=== PATIENT | male | born 1945 | race Caucasian/White ===

== ENCOUNTER 2019-09-05 12:03 | Inpatient (IN) | payer MEDICARE ==
[~2019-09-05] VITALS: Ht 182.9 cm; Wt 91.2 kg
[2019-09-05 14:39] LABS: BASOPHILS % 0.2 % (0.0-1.0); HEMATOCRIT 41.1 % (38.2-49.6); HEMOGLOBIN 13.7 g/dL (14.0-18.0); LYMPHOCYTES # (AUTO) 0.7 (1.0-3.2); LYMPHOCYTES % 14.3 % (18.0-39.1); MEAN CORPUSCULAR HEMOGLOBIN 28.8 pg (28-32); MEAN CORPUSCULAR HGB CONC 33.3 g/dL (31-35); MEAN CORPUSCULAR VOLUME 86.3 fL (81-99); MONOCYTES # (AUTO) 0.6 (0.2-0.8); MONOCYTES % 12.4 % (4.4-11.3); NEUTROPHILS # (AUTO) 3.3 (2.1-6.9); NEUTROPHILS % 72.4 % (38.7-80.0); PLATELET COUNT 167 x10e3/uL (140-360); RED BLOOD COUNT 4.76 x10e6/uL (4.3-5.7); RED CELL DISTRIBUTION WIDTH 13.2 % (11.7-14.4)
[2019-09-05 14:43] LABS: BILIRUBIN,URINE NEGATIVE (NEGATIVE); CLARITY,URINE SL CLOUDY (CLEAR); COLOR,URINE YELLOW (YELLOW); URINE UROBILINOGEN 0.2 mg/dL (0.2 - 1)
[2019-09-05 14:44] LABS: KETONES,URINE NEGATIVE (NEGATIVE); LEUKOCYTE ESTERASE ,URINE NEGATIVE (NEGATIVE); NITRITE,URINE NEGATIVE (NEGATIVE); PROTEIN,URINE DIPSTICK 1+ (NEGATIVE)
[2019-09-05 14:55] LABS: WBC,URINE (MAN) 0-5 /HPF (0-5)
[2019-09-05] MEDS ORDERED: AZITHROMYCIN 500MG/NS 250 ML 250 ML IV STA (14:57)
[2019-09-05 14:59] LABS: ALANINE AMINOTRANSFERASE 23 IU/L (0-55); ALBUMIN 3.7 g/dL (3.5-5.0); ALBUMIN/GLOBULIN RATIO 1.1 (0.8-2.0); ALKALINE PHOSPHATASE 51 IU/L (40-150); ANION GAP 18.2 mmol/L (8-16); BLOOD UREA NITROGEN 27 mg/dL (7-26); BUN/CREATININE RATIO 25 (6-25); CALCIUM 9.4 mg/dL (8.4-10.2); CARBON DIOXIDE 22 mmol/L (22-29); CHLORIDE 99 mmol/L (98-107); EST GLOMERULAR FILTRATION RATE > 60 ML/MIN (60-); GLUCOSE 319 mg/dL (74-118); POTASSIUM 4.2 mmol/L (3.5-5.1); SODIUM 135 mmol/L (136-145)
[2019-09-05] MEDS: CEFTRIAXONE SOD 1 GM/NS 50 ML 50 ML IV SCH (15:44)
[2019-09-05] MEDS ORDERED: DEXTROSE 50% SYRINGE 50 ML IV PRN (16:30)
[2019-09-05] MEDS ORDERED: ONDANSETRON HCL INJ 2MG/ML 2ML 2 MG/ML VIAL IV PRN (16:30)
[2019-09-05] MEDS ORDERED: GLIPIZIDE-METF1 EAC1 PO (16:42)
[2019-09-05] MEDS ORDERED: FINASTERIDE5 MG PO (16:42)
[2019-09-05] MEDS ORDERED: ALTACE2.5 MG PO (16:42)
[2019-09-05] MEDS ORDERED: HUMALOG MI100 UNIT/2 (16:42)
[2019-09-05] MEDS ORDERED: CLOPIDOGREL75 MG PO (16:42)
[2019-09-05] MEDS ORDERED: SIMVASTATIN20 MG PO (16:42)
[2019-09-05] MEDS ORDERED: METOPROLOL SUCC25 MG PO (16:42)
[2019-09-05] MEDS ORDERED: TERAZOSIN HCL10 MG PO (16:42)
[2019-09-05] MEDS: INSULIN REGULAR, HUMAN 100 UNIT/1 ML 3ML VIAL SQ SCH ×2 (16:48→22:28)
[2019-09-05] MEDS: ACETAMINOPHEN 325 MG TAB PO PRN (16:49)
[2019-09-05] MEDS: OSELTAMIVIR PHOSPHATE 75 MG CAP PO SCH (16:49)
--- NOTE | 2019-09-05 16:57 | Diagnostic Imaging Report ---
Chest, 1 view, 09/05/2019. History: Cough, pneumonia. Comparison: None available. Findings: The cardiomediastinal silhouette and pulmonary vasculature are within normal limits for a portable exam. There is ill-defined right perihilar opacity. Linear opacities are present at the lung bases. There are no acute osseous or soft tissue abnormalities. Impression: Ill-defined right perihilar opacity may represent pneumonia but neoplasm cannot be excluded. Recommend CT chest with contrast or follow-up two-view chest x-ray after treatment. Signed by: Álvaro Aguilera on 09/05/2019 4:55 PM
[2019-09-05] MEDS ORDERED: KETOROLAC TROMETHAMINE 30 MG/ML VIAL IV NR (21:00)
[2019-09-06] MEDS ORDERED: ALBUTEROL/IPRATROPIUM 3 ML NEB ONE (00:56)
[2019-09-06] MEDS: ACETAMINOPHEN 325 MG TAB PO PRN ×3 (00:58→21:13)
[2019-09-06 01:20] LABS: ABG HCO3 21 mmol/L (23-28); ABG PCO2 32 mmHg (41-51); ABG PH 7.43 (7.31-7.41); ABG PO2 77 mmHg (80-105)
--- NOTE | 2019-09-06 01:25 | Diagnostic Imaging Report ---
EXAMINATION: CHEST SINGLE (PORTABLE) INDICATION: Short of breath COMPARISON: Chest x-ray 09/05/2019 FINDINGS: TUBES and LINES: None. LUNGS: Normal lung volumes. Dense right hilar/lingular lung/central lung hazy opacity. Soft tissue fullness of the right hilum. Possible narrowing of right central airways. Mild left perihilar haziness. PLEURA: No pleural effusion or pneumothorax. HEART AND MEDIASTINUM: The cardiomediastinal silhouette is unremarkable. BONES AND SOFT TISSUES: No acute osseous lesion. Soft tissues are unremarkable. UPPER ABDOMEN: No free air under the diaphragm. IMPRESSION: Dense hazy right hilar/central lung opacity could be pneumonia or a hilar mass. Recommend chest CT with contrast for further evaluation. Signed by: Tom Segal DO on 09/06/2019 1:23 AM
[2019-09-06 01:34] LABS: ALANINE AMINOTRANSFERASE 21 IU/L (0-55); ALBUMIN 3.4 g/dL (3.5-5.0); ALKALINE PHOSPHATASE 48 IU/L (40-150); BLOOD UREA NITROGEN 22 mg/dL (7-26); BUN/CREATININE RATIO 21 (6-25); CALCIUM 8.9 mg/dL (8.4-10.2); CARBON DIOXIDE 21 mmol/L (22-29); CHLORIDE 102 mmol/L (98-107); CREATININE, SERUM 1.05 mg/dL (0.72-1.25); EST GLOMERULAR FILTRATION RATE > 60 ML/MIN (60-); GLUCOSE 155 mg/dL (74-118); SODIUM 136 mmol/L (136-145)
[2019-09-06 01:38] LABS: BASOPHILS % 0.2 % (0.0-1.0); HEMATOCRIT 40.8 % (38.2-49.6); HEMOGLOBIN 13.2 g/dL (14.0-18.0); LYMPHOCYTES # (AUTO) 0.9 (1.0-3.2); LYMPHOCYTES % 14.4 % (18.0-39.1); MEAN CORPUSCULAR HEMOGLOBIN 28.4 pg (28-32); MEAN CORPUSCULAR HGB CONC 32.4 g/dL (31-35); MEAN CORPUSCULAR VOLUME 87.7 fL (81-99); MONOCYTES # (AUTO) 0.7 (0.2-0.8); MONOCYTES % 10.3 % (4.4-11.3); NEUTROPHILS # (AUTO) 4.8 (2.1-6.9); NEUTROPHILS % 74.5 % (38.7-80.0); PLATELET COUNT 158 x10e3/uL (140-360); RED BLOOD COUNT 4.65 x10e6/uL (4.3-5.7); RED CELL DISTRIBUTION WIDTH 13.1 % (11.7-14.4)
[2019-09-06] MEDS: ALBUTEROL/IPRATROPIUM 3 ML NEB NEB SCH ×6 (01:48→23:05)
[2019-09-06 02:04] LABS: B-TYPE NATRIURETIC PEPTIDE2 39.7 pg/mL (0-100)
[2019-09-06] MEDS ORDERED: IBUPROFEN 600 MG TAB PO STA (02:11)
--- NOTE | 2019-09-06 07:49 | NUR ---
blood sugar checked rading was 165
[2019-09-06] MEDS: INSULIN REGULAR, HUMAN 100 UNIT/1 ML 3ML VIAL SQ SCH ×4 (07:50→21:20)
[2019-09-06] MEDS: OSELTAMIVIR PHOSPHATE 75 MG CAP PO SCH ×2 (09:31→17:18)
[2019-09-06] MEDS: CLOPIDOGREL BISULFATE 75 MG TAB PO SCH (11:50)
[2019-09-06] MEDS: METOPROLOL SUCCINATE 25 MG TAB XL PO SCH (11:50)
[2019-09-06 12:00] VITALS: BP_SYST 159; BP_SYST 186; BP_DIAS 77; BP_DIAS 79
--- NOTE | 2019-09-06 12:43 | Diagnostic Imaging Report ---
CT of the chest, with contrast, 09/06/2019. History: Pneumonia. Comparison: X-ray from earlier today. Technique: Multidetector CT scanning of the chest was performed from the level of the apices to the upper abdomen after intravenous administration of contrast. Coronal and sagittal multiplanar reformations were obtained. RADIATION DOSE: Total DLP: 613 mGy*cm Dose modulation, iterative reconstruction, and/or weight based adjustment of the mA/kV was utilized to reduce the radiation dose to as low as reasonably achievable. Discussion: Chest: The heart and aorta are normal in size but the main pulmonary artery is dilated measuring 4 cm in diameter. The thyroid is unremarkable. Nonspecific subcentimeter mediastinal and hilar nodes are present. There is no evidence of axillary or mediastinal adenopathy. There is advanced predominantly upper lobe centrilobular emphysema. There is dense consolidation of the medial aspect of the right upper lobe abutting the heart and mediastinum. Patchy consolidation is present in the posterior aspect of the right upper lobe as well. There is no visible mass. Linear and subsegmental atelectasis are present within the right middle lobe and both lower lobes. Trace bilateral pleural effusions are present Limited evaluation of the upper abdomen shows normal adrenal glands. Bones and soft tissues: No acute abnormality. Degenerative changes are noted in the lower thoracic spine. IMPRESSION: 1. Findings consistent with severe pneumonia right upper lobe pneumonia. Recommend follow-up imaging after treatment in 2-3 months to exclude underlying neoplasm. 2. Advanced emphysematous disease and bilateral atelectasis are also noted. Signed by: Álvaro Aguilera on 09/06/2019 12:41 PM
--- NOTE | 2019-09-06 12:50 | History and Physical ---
PCP: Dr. Jared Espitia at [facility]. CHIEF COMPLAINT: Fever and body ache. HISTORY OF PRESENT ILLNESS: This is a 74-year-old male with past medical history of hypertension, high cholesterol, TIA, and diabetes, presented to the ER with complaints of body aches and fever of up to 103.0 per the patient's spouse. He reports the symptoms initially started 2 days ago, felt chills and fever with nonproductive cough with muscle aches. He denies any chest pain, nausea, vomiting, shortness of breath, or palpitations. He was admitted for further evaluation. PAST MEDICAL HISTORY: 1. Hypertension. 2. High cholesterol. 3. TIA. 4. Diabetes type 2. PAST SURGICAL HISTORY: Has had multiple orthopedic surgery, knee, back, and wrist. FAMILY MEDICAL HISTORY: Both parents had diabetes. SOCIAL HISTORY: He denies any tobacco use or illicit drug use, but reports drinking wine occasionally. ALLERGIES: HE IS ALLERGIC TO CODEINE. REVIEW OF SYSTEMS: GENERAL: Fatigue and generalized weakness with body aches. HEENT: No head trauma. LUNGS: Nonproductive cough. CARDIOVASCULAR: No chest pain or palpitations. GI: No nausea or vomiting. NEUROLOGIC: Alert and oriented. MUSCULOSKELETAL: Body aches. SKIN: Dry. PHYSICAL EXAMINATION: VITAL SIGNS: Temperature 99.6, pulse is 65, respirations 15, blood pressure 126/58, and pulse ox is 96% on 2 L of oxygen. GENERAL: Fatigue and generalized weakness. HEENT: Normocephalic and atraumatic. NECK: Supple. LUNGS: With decreased breath sounds. CARDIOVASCULAR: Regular rate and rhythm. GI: Soft and nontender. NEUROLOGIC: Alert, awake, and oriented x3. MUSCULOSKELETAL: Moves all extremities. SKIN: Dry. PSYCH: Calm. LABORATORY DATA: WBC 4.53, hemoglobin 13.7, hematocrit 41.1, and platelet 167. Sodium 135, potassium 4.2, creatinine 1.10, and estimated GFR greater than 60. AST 30 and ALT 23. Lactic acid 1.3. BNP 39.7. Albumin 3.7. UA; yellow, slightly cloudy with some protein and glucose, otherwise negative for wbc, bacteria, or leukocytes. Blood cultures and urine cultures pending. Chest x-ray showed ill-defined right perihilar opacity, may represent pneumonia, but no neoplasm, cannot be excluded. Recommended CT chest with contrast for followup. IMPRESSION AND PLAN: 1. Acute respiratory infection. Due to pneumonia versus the influenza. He was started on Tamiflu and Rocephin for possible pneumonia. We will continue with nebs and IV fluid for supportive therapy. 2. Hypertension. We will continue home medications. 3. Diabetes type 2. We will continue with sliding scale insulin coverage at this point. 4. High cholesterol. On statin. 5. History of transient ischemic attack. We will continue on statin and Plavix. 6. Debility. We will consult physical therapy for evaluation. 7. Deep vein thrombosis prophylaxis. We will start on heparin subcutaneous. Dictated by KENROY Alejandro Mik Lowry MD MY/MODL /[id number] Seen and examined on 09/05/2019, updated at the bedside. Agree with the findings and plan as documented by KENROY Krause. MARIA A
[2019-09-06 13:50] VITALS: BP 144/67
[2019-09-06 13:51] VITALS: BP 144/67
[2019-09-06 14:01] VITALS: BP 144/67
[2019-09-06] MEDS: RAMIPRIL 2.5 MG CAP PO SCH (14:20)
[2019-09-06] MEDS: AZITHROMYCIN 250 MG TAB PO SCH (14:21)
[2019-09-06] MEDS: CEFTRIAXONE SOD 1 GM/NS 50 ML 50 ML IV SCH (14:55)
[2019-09-06] MEDS ORDERED: IOPAMIDOL 370 MG/ML 200 ML INFUS..BTL INJ ONE (15:16)
[2019-09-06] MEDS ORDERED: SODIUM CHLORIDE 0.9% 50ML 50 ML ONE (15:16)
--- NOTE | 2019-09-06 15:16 | Progress Note ---
DATE: 09/06/2019 CHIEF COMPLAINT: Fever, body aches, and nonproductive cough. SUBJECTIVE: The patient reports still with fever on and off. He reports he does not have the chills and body ache is improving. His appetite is also improving. Denies any chest pain, shortness of breath, hemoptysis, or chest pain. PHYSICAL EXAMINATION: VITAL SIGNS: Temperature 100.7, pulse is 74, respirations 18, blood pressure 144/64, and pulse ox 97% on 2 L oxygen. GENERAL: No acute distress. HEENT: Normocephalic and atraumatic. NECK: Supple. CARDIOVASCULAR: Regular rate and rhythm. LUNGS: With decreased breath sounds. ABDOMEN: Soft and nontender. NEUROLOGIC: Alert, awake, and oriented x3. MUSCULOSKELETAL: Moves all extremities. SKIN: Dry and intact. LABORATORY DATA: WBC 6.38, hemoglobin 13.2, hematocrit 40.8, and platelet 158. Sodium 136, potassium 4.0, BUN is 22, creatinine 1.05, and glucose 155. Lactic acid 1.3. BNP is 39.7. Blood culture is still pending. Urine culture negative so far. IMAGING: CT chest shows severe pneumonia of right upper lobe. IMPRESSION AND PLAN: 1. Right upper lobe pneumonia. We will continue with Rocephin and add azithromycin. CT chest was noted with right upper lobe pneumonia. We will continue with supportive care and nebs. 2. Hypertension. We will continue on home medications. 3. Diabetes type 2. Continue sliding scale insulin. 4. High cholesterol. On statin. 5. History of transient ischemic attack. Continue statin and Plavix. 6. Debility. We will continue with PT evaluation. 7. Deep vein thrombosis prophylaxis. Continue heparin. 8. Questionable chronic obstructive pulmonary disease. Noted on CT chest. We will continue with nebs and follow up as outpatient. PLAN: To continue with IV antibiotics, await on blood cultures, PT evaluation and treat. Anticipate discharge home in 1 to 2 days. Dictated by KENRYO Alejandro Mik Lowry MD MY/MODL /[id number]
--- NOTE | 2019-09-06 19:00 | NUR ---
Report and waling rounds completed, patient in bed watching tv. No issues or concerns noted. Call light and personal belongings within reach. Visitor at bedside. Will continue to monitor closely.
[2019-09-06 20:00] VITALS: BP 141/66
[2019-09-06] MEDS: HEPARIN SOD (PORCINE) 5,000 UNIT/ML VIAL SC SCH (21:13)
[2019-09-06] MEDS: SIMVASTATIN 20 MG TAB PO SCH (21:13)
[2019-09-07] VITALS (10 sets, daily range): BP systolic 125–150; BP diastolic 59–69
[2019-09-07] MEDS: ALBUTEROL/IPRATROPIUM 3 ML NEB NEB SCH ×6 (03:25→23:05)
--- NOTE | 2019-09-07 07:00 | NUR ---
BEDSIDE SHIFT REPORT RECEIVED FROM THE PREVIOUS SHIFT RN. EDUCATED PATIENT ABOUT FALL PRECAUTIONS. CALL LIGHT IN EASY REACH. INSTRUCTED PATIENT TO USE CALL LIGHT FOR ANY NEEDS. PATIENT VERBALIZE UNDERSTANDING. BED IS LOW, WHEELS LOCKED, SIDE RAILS UP X2 FOR SAFETY. PT DENIES NEEDS AT THIS TIME
[2019-09-07] MEDS: METOPROLOL SUCCINATE 25 MG TAB XL PO SCH (08:09)
[2019-09-07] MEDS: OSELTAMIVIR PHOSPHATE 75 MG CAP PO SCH ×2 (08:09→17:05)
[2019-09-07] MEDS: CLOPIDOGREL BISULFATE 75 MG TAB PO SCH (08:09)
[2019-09-07] MEDS: AZITHROMYCIN 250 MG TAB PO SCH (08:09)
[2019-09-07] MEDS: RAMIPRIL 2.5 MG CAP PO SCH (08:09)
[2019-09-07] MEDS: HEPARIN SOD (PORCINE) 5,000 UNIT/ML VIAL SC SCH ×2 (10:00→23:22)
[2019-09-07] MEDS: INSULIN REGULAR, HUMAN 100 UNIT/1 ML 3ML VIAL SQ SCH ×4 (10:01→23:22)
[2019-09-07] MEDS ORDERED: IBUPROFEN 600 MG TAB PO PRN (14:15)
[2019-09-07] MEDS ORDERED: POTASSIUM CHLORIDE 20 MEQ TAB CR PO NR (16:00)
[2019-09-07] MEDS: LEVOFLOXACIN 500MG/D5W 100ML 100 ML IV SCH (16:06)
[2019-09-07] MEDS ORDERED: SODIUM CHLORIDE 0.9% 250ML 250 ML ONE (16:56)
[2019-09-07] MEDS: VANCOMYCIN 1GM/NS 250 ML 250 ML IV SCH (17:04)
--- NOTE | 2019-09-07 17:16 | Progress Note ---
DATE: 09/07/2019 CHIEF COMPLAINT: Fever, body aches and nonproductive cough. SUBJECTIVE: The patient was seen after taking a shower, seemed more short of breath likely due to activity. He is still with fever. Denies chest pain, hemoptysis, or nausea or vomiting. PHYSICAL EXAMINATION: VITAL SIGNS: Temperature is 100.8, pulse is 75, respirations 20, blood pressure is 125/60, pulse ox is 97% on 4 L of oxygen. GENERAL: No acute distress. HEENT: Normocephalic, atraumatic. NECK: Supple. CARDIOVASCULAR: Regular rate and rhythm. LUNGS: With decreased breath sounds. ABDOMEN: Soft and nontender. NEUROLOGIC: Alert, awake, and oriented x3. MUSCULOSKELETAL: Moves all extremities. SKIN: Dry and intact. IMAGING DATA: CT chest showed severe pneumonia of the right upper lobe and advanced emphysematous disease and bilateral atelectasis noted. IMPRESSION AND PLAN: 1. Severe right upper lobe pneumonia still with fever. We will change antibiotics to Levaquin and vancomycin. Continue with nebs and supportive therapy. 2. History of chronic obstructive pulmonary disease. Continue nebs. 3. Hypertension. We will continue with home medications. 4. Diabetes type 2. Continue on sliding scale insulin. 5. High cholesterol. On statin. 6. History of transient ischemic attack. Continue on statin and Plavix. 7. Debility. We will consult PT for evaluation. 8. Deep vein thrombosis prophylaxis. Continue on heparin subcu. We will change the IV antibiotics to vanc or Levaquin. PT to evaluate and anticipate discharge home in 1 to 2 days. Dictated by KENROY Alejandro Mik Lowry MD MY/MODL /[id number]
[2019-09-07] MEDS: SIMVASTATIN 20 MG TAB PO SCH (21:21)
[2019-09-08] VITALS (7 sets, daily range): BP systolic 121–151; BP diastolic 57–87
[2019-09-08] MEDS: VANCOMYCIN 1GM/NS 250 ML 250 ML IV SCH ×2 (03:10→15:52)
[2019-09-08] MEDS: ALBUTEROL/IPRATROPIUM 3 ML NEB NEB SCH ×5 (03:50→19:30)
[2019-09-08 06:29] LABS: BASOPHILS % 0.3 % (0.0-1.0); HEMOGLOBIN 11.8 g/dL (14.0-18.0); LYMPHOCYTES # (AUTO) 0.8 (1.0-3.2); MEAN CORPUSCULAR HEMOGLOBIN 28.3 pg (28-32); MEAN CORPUSCULAR HGB CONC 31.9 g/dL (31-35); MEAN CORPUSCULAR VOLUME 88.7 fL (81-99); MONOCYTES # (AUTO) 0.4 (0.2-0.8); MONOCYTES % 5.6 % (4.4-11.3); NEUTROPHILS # (AUTO) 5.9 (2.1-6.9); NEUTROPHILS % 82.1 % (38.7-80.0); PLATELET COUNT 139 x10e3/uL (140-360); RED BLOOD COUNT 4.17 x10e6/uL (4.3-5.7); RED CELL DISTRIBUTION WIDTH 13.4 % (11.7-14.4)
[2019-09-08 06:58] LABS: BLOOD UREA NITROGEN 20 mg/dL (7-26); BUN/CREATININE RATIO 24 (6-25); CALCIUM 8.5 mg/dL (8.4-10.2); CARBON DIOXIDE 20 mmol/L (22-29); CHLORIDE 102 mmol/L (98-107); CREATININE, SERUM 0.82 mg/dL (0.72-1.25); EST GLOMERULAR FILTRATION RATE > 60 ML/MIN (60-); GLUCOSE 311 mg/dL (74-118); SODIUM 133 mmol/L (136-145)
--- NOTE | 2019-09-08 07:00 | NUR ---
BEDSIDE SHIFT REPORT RECEIVED FROM NIGHT RN. PT DENIES NEEDS AT THIS TIME.
[2019-09-08] MEDS: OSELTAMIVIR PHOSPHATE 75 MG CAP PO SCH ×2 (08:13→16:38)
[2019-09-08] MEDS: RAMIPRIL 2.5 MG CAP PO SCH (08:13)
[2019-09-08] MEDS: METOPROLOL SUCCINATE 25 MG TAB XL PO SCH (08:13)
[2019-09-08] MEDS: CLOPIDOGREL BISULFATE 75 MG TAB PO SCH (08:13)
[2019-09-08] MEDS: INSULIN REGULAR, HUMAN 100 UNIT/1 ML 3ML VIAL SQ SCH ×4 (08:24→21:04)
[2019-09-08] MEDS: HEPARIN SOD (PORCINE) 5,000 UNIT/ML VIAL SC SCH ×2 (08:25→21:01)
[2019-09-08 10:40] LABS: PLATELET MORPHOLOGY COMMENT FEW LARGE
--- NOTE | 2019-09-08 15:38 | Progress Note ---
DATE: 09/08/2019 CHIEF COMPLAINT: Fever, body aches, and productive cough. SUBJECTIVE: The patient is seen resting in bed. Has been afebrile since yesterday. Still with some dyspnea. He denies any chest pain, fever, chills, nausea, or vomiting. PHYSICAL EXAMINATION: VITAL SIGNS: Temperature 97.8, pulse is 73, respirations 18, blood pressure 138/66, and pulse ox is 95% on room air. GENERAL: In no acute distress, fatigued. HEENT: Normocephalic, atraumatic. NECK: Supple. CARDIOVASCULAR: Regular rate and rhythm. LUNGS: With decreased breath sounds. ABDOMEN: Soft and nontender. NEUROLOGIC: Alert, awake, and oriented x3. MUSCULOSKELETAL: Moves all extremities. SKIN: Dry and intact. LABORATORY DATA: WBC 7.16, hemoglobin 11.8, hematocrit 37.0, and platelet is 139. Sodium is 133, potassium 4.0, BUN is 20, creatinine 0.8, calcium 8.5. IMPRESSION: 1. Severe right upper lobe pneumonia, still with fever. We will continue with vancomycin and Levaquin. DuoNeb q.4 hours and supportive therapy. 2. History of chronic obstructive pulmonary disease. Continue nebs. 3. Hypertension. We will continue with home medication. 4. Diabetes type 2. Continue on sliding scale insulin. 5. High cholesterol. On statin. 6. History of transient ischemic attack. Continue on statin and Plavix. 7. Debility. We will consult PT for evaluation and treat. 8. Deep vein thrombosis prophylaxis. Continue heparin subcu. PLAN: Plan is to continue with IV Levaquin and vancomycin. We will check chest x-ray today. Encourage IS and PT as tolerated. Dictated by KENROY Alejandro Soniaching Pino Lowry MD MY/MODL /[id number]
[2019-09-08] MEDS: LEVOFLOXACIN 500MG/D5W 100ML 100 ML IV SCH (15:52)
[2019-09-08] MEDS: ACETAMINOPHEN 325 MG TAB PO PRN (15:53)
[2019-09-08] MEDS: GLIPIZIDE 5 MG TAB PO SCH (16:38)
[2019-09-08] MEDS: METFORMIN HCL 500 MG TAB PO SCH (16:38)
--- NOTE | 2019-09-08 19:26 | NUR ---
RECEIVED REPORT FROM 7AM NURSE, ROUNDS DONE, CALL LIGHT IN REACH. PATIENT RESTING IN BED WATCHING TV, RECEIVING IV ABT AT THIS TIME. WILL CONTINUE TO MONITOR.
[2019-09-08] MEDS: SIMVASTATIN 20 MG TAB PO SCH (21:01)
[2019-09-09] VITALS (9 sets, daily range): BP systolic 140–160; BP diastolic 70–86
[2019-09-09] MEDS: ALBUTEROL/IPRATROPIUM 3 ML NEB NEB SCH ×6 (03:00→20:00)
[2019-09-09] MEDS: VANCOMYCIN 1GM/NS 250 ML 250 ML IV SCH ×2 (03:05→16:00)
--- NOTE | 2019-09-09 07:14 | NUR ---
REPORT GIVEN TO AM NURSE, PATIENT CONTINUE RESTING IN BED 02 ER NC AT 4.5L, CALL LIGHT IN REACH. WILL CONTINUE TO MONITOR.
[2019-09-09] MEDS: METFORMIN HCL 500 MG TAB PO SCH ×2 (08:10→16:34)
[2019-09-09] MEDS: GLIPIZIDE 5 MG TAB PO SCH ×2 (08:10→16:34)
[2019-09-09] MEDS: CLOPIDOGREL BISULFATE 75 MG TAB PO SCH (08:11)
[2019-09-09] MEDS: FINASTERIDE 5 MG TAB PO SCH (08:11)
[2019-09-09] MEDS: METOPROLOL SUCCINATE 25 MG TAB XL PO SCH (08:11)
[2019-09-09] MEDS: RAMIPRIL 2.5 MG CAP PO SCH (08:11)
[2019-09-09] MEDS: OSELTAMIVIR PHOSPHATE 75 MG CAP PO SCH ×2 (08:25→16:34)
[2019-09-09] MEDS: INSULIN REGULAR, HUMAN 100 UNIT/1 ML 3ML VIAL SQ SCH ×4 (08:25→21:28)
[2019-09-09] MEDS: HEPARIN SOD (PORCINE) 5,000 UNIT/ML VIAL SC SCH ×2 (08:25→21:28)
--- NOTE | 2019-09-09 09:25 | Diagnostic Imaging Report ---
EXAMINATION: CHEST SINGLE (PORTABLE) INDICATION: Shortness of breath COMPARISON: Chest CT 09/06/2019, chest radiograph 09/05/2019 FINDINGS: LINES/TUBES:None LUNGS:The lungs are hyperinflated. Severe baseline emphysematous changes. Airspace consolidation at the right mid lung corresponding with known consolidation of the medial right upper lobe seen on chest CT of 09/06/2019. PLEURA:No pleural effusion or pneumothorax. MEDIASTINUM:The cardiomediastinal silhouette appears unchanged in size and shape. BONES/SOFT TISSUES:No acute osseous injury. ABDOMEN:No free air under the diaphragm. IMPRESSION: Extensive right upper lobe pneumonia, as previously seen on chest CT of 09/06/2019. RECOMMENDATION: Follow-up PA and lateral chest radiographs in 6-8 weeks after treatment to assess for resolution and exclude underlying mass lesion. Signed by: Parrish Mayo MD on 09/09/2019 9:23 AM
[2019-09-09] MEDS ORDERED: METHYLPREDNISOLONE SOD SUCC 40 MG/ML VIAL 1ML IV ONE ×2 (11:00→14:40)
[2019-09-09] MEDS ORDERED: ONDANSETRON HCL 4 MG ORAL DISINTEGRATING TAB PO PRN (11:30)
--- NOTE | 2019-09-09 11:54 | NUR ---
Spoke to SHAY Helton regarding plan. States will do home O2 eval. Pt still short of breath. Anticipate DC home in 1-2 days.
--- NOTE | 2019-09-09 12:12 | Progress Note ---
DATE: 09/09/2019 CHIEF COMPLAINT: Fever, body aches, shortness of breath, and nonproductive cough. SUBJECTIVE: The patient is seen resting in bed with some dyspnea. He reports feeling a little bit better, but reported increased dyspnea with exertion. He denies any chest pain, fever, chills, nausea, or vomiting. PHYSICAL EXAMINATION: VITAL SIGNS: Temperature 97.1, pulse is 74, respirations 18, blood pressure 160/86, and pulse ox is 93% on 4 L of nasal cannula. GENERAL: Fatigue. HEENT: Normocephalic and atraumatic. NECK: Supple. CARDIOVASCULAR: Regular rate and rhythm. LUNGS: Decreased breath sounds with some wheezing. ABDOMEN: Soft and nontender. NEUROLOGIC: Alert, awake, and oriented x3. MUSCULOSKELETAL: Moves all extremities. SKIN: Dry. LABORATORY DATA: Sputum culture is pending, shows gram-positive cocci and chain, pending final cultures. IMAGING: Chest x-ray shows extensive right upper lobe pneumonia as previously seen on chest CT of 09/06/2019, and recommends repeat PA and lateral chest x-ray in 6 to 8 weeks. IMPRESSION: 1. Severe right upper lobe pneumonia. Continue on vancomycin and Levaquin. DuoNeb q.4 hours and supportive therapy. Blood cultures have been negative. Sputum culture pending final results. 2. Chronic obstructive pulmonary disease with likely some exacerbation. We will start him on Solu-Medrol and continue on Symbicort and nebs. 3. Hypertension. We will continue on home medications. 4. Diabetes type 2. Continue sliding scale, glipizide, and metformin. We will add long-acting insulin. 5. High cholesterol. Continue on statin. 6. History of transient ischemic attack. Continue on statin and Plavix. 7. Debility. PT/OT to evaluate and treat. 8. Deep vein thrombosis prophylaxis. Continue heparin subcutaneous b.i.d. PLAN: To continue with IV Levaquin and vancomycin. We will add Solu-Medrol. We will encourage IS use and ambulation as tolerated. Dictated by KENROY Alejandro Soniaching Pino Lowry MD MY/MODL /[id number]
[2019-09-09] MEDS: BUDESONIDE/FORMOTEROL 160/4.5MCG INHALER INH SCH ×2 (12:30→20:00)
[2019-09-09] MEDS: LEVOFLOXACIN 500MG/D5W 100ML 100 ML IV SCH (14:14)
--- NOTE | 2019-09-09 19:20 | NUR ---
Received patient awake, not in distress, on O2 support via nasal cannula and continuous pulse ox, sats at 93%. Call light within easy reach, advised to call anytime when needed, will continue to monitor patient
[2019-09-09] MEDS ORDERED: INSULIN GLARGINE 100 UNITS/ML VIAL SQ SCH (21:00)
[2019-09-09] MEDS: SIMVASTATIN 20 MG TAB PO SCH (21:28)
[2019-09-10] VITALS (8 sets, daily range): BP systolic 136–161; BP diastolic 69–85
[2019-09-10] MEDS: ALBUTEROL/IPRATROPIUM 3 ML NEB NEB SCH ×7 (03:00→23:45)
[2019-09-10] MEDS: VANCOMYCIN 1GM/NS 250 ML 250 ML IV SCH ×2 (03:30→15:00)
[2019-09-10] MEDS: BUDESONIDE/FORMOTEROL 160/4.5MCG INHALER INH SCH ×2 (07:02→20:00)
[2019-09-10] MEDS: GLIPIZIDE 5 MG TAB PO SCH ×2 (08:19→17:10)
[2019-09-10] MEDS: METFORMIN HCL 500 MG TAB PO SCH ×2 (08:19→17:10)
[2019-09-10] MEDS: CLOPIDOGREL BISULFATE 75 MG TAB PO SCH (08:20)
[2019-09-10] MEDS: RAMIPRIL 2.5 MG CAP PO SCH (08:20)
[2019-09-10] MEDS: PREDNISONE 20 MG TAB PO SCH (08:20)
[2019-09-10] MEDS: OSELTAMIVIR PHOSPHATE 75 MG CAP PO SCH ×2 (08:20→17:10)
[2019-09-10] MEDS: FINASTERIDE 5 MG TAB PO SCH (08:20)
[2019-09-10] MEDS: METOPROLOL SUCCINATE 25 MG TAB XL PO SCH (08:21)
[2019-09-10] MEDS: HEPARIN SOD (PORCINE) 5,000 UNIT/ML VIAL SC SCH ×2 (08:21→21:45)
[2019-09-10] MEDS: INSULIN REGULAR, HUMAN 100 UNIT/1 ML 3ML VIAL SQ SCH ×4 (08:22→21:45)
[2019-09-10] MEDS: LEVOFLOXACIN 500MG/D5W 100ML 100 ML IV SCH (14:16)
[2019-09-10] MEDS ORDERED: CLONIDINE HCL 0.1 MG TAB PO PRN (15:45)
[2019-09-10] MEDS ORDERED: DEXTROSE 50% SYRINGE 50 ML IV PRN (16:15)
--- NOTE | 2019-09-10 17:16 | NUR ---
Spoke with SHAY Helton. Plan is to discharge pt tomorrow. Pt's home O2 eval was done. 85% on room air. CM spoke to pt at bedside. Pt states to use any company that takes his insurance. Choice letter signed for [facility], [employer], and [facility]. Signed copy placed in chart. Copy to pt. I[employer] letter delivered and discussed with pt. He verbalized understanding. Signed copy placed in chart. Copy to pt. Harjit with [facility] was notified of referral. States he will seed cone picker clinicals tomorrow and drop off portables. Addendum: 09/10/19 at 1727 by Sydni Cartagena CM PT was recommending a walker for pt. Pt told CM that he will not use one.
--- NOTE | 2019-09-10 18:44 | Progress Note ---
DATE: 09/10/2019 CHIEF COMPLAINT: Fever, body aches, shortness of breath and nonproductive cough. SUBJECTIVE: The patient is resting in bed with improved dyspnea. He has been afebrile, but still with increased dyspnea and hypoxia with exertion. He denies any chest pain, fever, chills, nausea or vomiting. PHYSICAL EXAMINATION: VITAL SIGNS: Temperature 98.7, pulse is 62, respirations 20, blood pressure 159/85, pulse ox is 96% on 4 L of O2. GENERAL: Fatigue. HEENT: Normocephalic atraumatic. NECK: Supple. CARDIOVASCULAR: Regular rate and rhythm. LUNGS: Decreased breath sounds with some wheezing throughout. ABDOMEN: Soft and nontender. NEUROLOGIC: Alert, awake, and oriented x3. MUSCULOSKELETAL: Moves all extremities. SKIN: Dry. IMPRESSION: 1. Severe right upper lobe pneumonia. Continue on vancomycin and Levaquin, DuoNeb q.4 hours. Blood cultures have been negative. Sputum culture normal fouzia. 2. Chronic obstructive pulmonary disease. We will continue on prednisone 40 mg p.o. daily, DuoNeb q.4 and Symbicort. 3. Hypertension. We will continue on home medications. We will add clonidine p.r.n. 4. Diabetes type 2. Continue sliding scale insulin, glipizide and metformin. We will also add Lantus at bedtime. 5. High cholesterol. Continue on statin. 6. History of transient ischemic attack. Continue statin and Plavix. 7. Debility. Continue PT, OT. The patient refused home health for physical therapy. 8. Hypoxia. Due to chronic obstructive pulmonary disease and pneumonia. We will consult for home O2. 9. Deep vein thrombosis prophylaxis. Continue heparin subcu b.i.d. PLAN: Plan is to continue with IV antibiotics, neb treatments, and prednisone. Encourage to use IS and ambulation as tolerated. I anticipate to discharge him tomorrow with home O2. Dictated by KENROY Alejandro Mik Lowry MD MY/MODL /[id number]
[2019-09-10] MEDS ORDERED: INSULIN GLARGINE 100 UNITS/ML VIAL SQ SCH (21:00)
[2019-09-10] MEDS: SIMVASTATIN 20 MG TAB PO SCH (22:13)
[2019-09-11] VITALS: BP 119/66
[2019-09-11] MEDS: ALBUTEROL/IPRATROPIUM 3 ML NEB NEB SCH ×3 (03:00→11:23)
[2019-09-11] MEDS: VANCOMYCIN 1GM/NS 250 ML 250 ML IV SCH (03:45)
[2019-09-11 04:00] VITALS: BP 144/76
[2019-09-11] MEDS: BUDESONIDE/FORMOTEROL 160/4.5MCG INHALER INH SCH (07:05)
[2019-09-11] MEDS: INSULIN REGULAR, HUMAN 100 UNIT/1 ML 3ML VIAL SQ SCH ×2 (07:30→12:23)
[2019-09-11 08:04] VITALS: BP 141/60
[2019-09-11] MEDS: CLOPIDOGREL BISULFATE 75 MG TAB PO SCH (08:24)
[2019-09-11] MEDS: GLIPIZIDE 5 MG TAB PO SCH (08:24)
[2019-09-11] MEDS: HEPARIN SOD (PORCINE) 5,000 UNIT/ML VIAL SC SCH (08:24)
[2019-09-11] MEDS: METFORMIN HCL 500 MG TAB PO SCH (08:24)
[2019-09-11] MEDS: FINASTERIDE 5 MG TAB PO SCH (08:24)
[2019-09-11] MEDS: OSELTAMIVIR PHOSPHATE 75 MG CAP PO SCH (08:24)
[2019-09-11] MEDS: PREDNISONE 20 MG TAB PO SCH (08:24)
[2019-09-11] MEDS: RAMIPRIL 2.5 MG CAP PO SCH (08:24)
[2019-09-11] MEDS: METOPROLOL SUCCINATE 25 MG TAB XL PO SCH (08:24)
[2019-09-11 08:25] VITALS: BP 141/60
--- NOTE | 2019-09-11 11:31 | NUR ---
Harjit Torres picked up clinicals and is here to deliver portables.
[2019-09-11 11:55] VITALS: BP 164/77
[2019-09-11] MEDS: LEVOFLOXACIN 500MG/D5W 100ML 100 ML IV SCH (12:23)
[2019-09-11] MEDS ORDERED: Albuterol/Ipratropium Nebulize NEB (13:17)
[2019-09-11] MEDS ORDERED: LEVAQUIN500 MG PO (13:21)
[2019-09-11] MEDS ORDERED: HYDRALAZINE HCL 20 MG/ML VIAL IV NR (14:00)
--- NOTE | 2019-09-11 14:02 | NUR ---
BP 174/81 Sunitha Y [employer] aware. See orders
[2019-09-11] MEDS ORDERED: ADVAIR 250-501 EACH INH (14:37)
--- NOTE | 2019-09-11 15:00 | NUR ---
BP 136/52
[2019-09-11 15:05] VITALS: BP 136/52
--- NOTE | 2019-09-11 15:05 | NUR ---
Left wrist IV discontinued. No signs of infiltration noted. 2x2 gauze and tape placed. Taken via wheelchair by PCT to personal car. Accompanied by . AAOX3 to time, person, place. Respirations even and unlabored. O2 3L NC via personal oxygen tank. Discharge instructions, rx, and all personal belongings taken with patient.
--- NOTE | 2019-09-11 17:04 | NUR ---
Nutrition Screen Note RD Recommendation for Physician: -Recommend cardiac/diabetic diet Plan of Care: RD following, monitoring for tolerance and adequacy Nutrition reason for involvement: Length of stay Primary Diagnose(s): acute respiratory failure with hypoxia, pneumonia, PMH: HTN, high cholesterol, TIA, and type 2 diabetes Ht: 72 in Wt:201 lb BMI: 27.3 kg/m2 IBW: [address] Assessment: (09/11/2019) Chart reviewed. Labs and meds reviewed. Pt was admitted with acute respiratory failure with hypoxia and pneumonia. Pt reports he has been eating about 50% of meals. It is documented that pt has been consuming 50-100% of meals during admission. Pt was unsure of any recent weight changes and usually weighs 202 lbs. No N/V or chewing/swallowing issues. Will continue to monitor. Current Diet: cardiac diet Malnutrition Evaluation (09/11/2019) The patient does not meet criteria for a specified degree of malnutrition at this time. Will re-evaluate at follow-up as appropriate. Diet Education Needs Assessment: Pt was not interested in diet education materials Nutrition Care Level: low Signed: Shannen Mcgraw, RD, LD
[2019-09-12] MEDS ORDERED: LEVOFLOXACIN 500 MG TAB PO SCH (12:00)
--- NOTE | 2019-09-12 21:31 | Discharge Summary ---
PCP: Dr. Jared Espitia at [facility]. FINAL DISCHARGE DIAGNOSES: 1. Severe right upper lobe pneumonia, community-acquired. 2. Chronic obstructive pulmonary disease. 3. Hypertension. 4. Diabetes type 2. 5. High cholesterol. 6. History of transient ischemic attack. 7. Hypoxia. CONSULTANTS: None. PROCEDURES: None. HISTORY: Per HPI. HOSPITAL COURSE: This is a 74-year-old male who presented to the ER with complaints of fever, body aches, shortness of breath and nonproductive cough. Cultures were sent and he was started on IV antibiotics. He was also started on Tamiflu for possible flu as he had flu-like symptoms. Chest x-ray and CT chest showed severe right upper lobe pneumonia. He was initially started on Rocephin and azithromycin, but continued to have fever. So, he was switched to Levaquin and vancomycin. DuoNebs. Blood culture was negative, sputum culture with normal fouzia. He was started on prednisone to help with his wheezing and Symbicort. He continued to be hypoxic, especially with exertion down to the 80s. Home O2 was arranged. Today, he is feeling much better, he has remained fever free for greater than 24-48 hours, dyspnea is improved. We will discharge home to follow up with his PCP in 2-3 weeks for a repeat chest x-ray. PHYSICAL EXAMINATION: VITAL SIGNS: Temperature 98.7, pulse is 62, respirations 20, blood pressure 159/85, pulse ox is 96% on 4 L of O2. GENERAL: No acute distress. HEENT: Normocephalic, atraumatic. NECK: Supple. CARDIOVASCULAR: Regular rate and rhythm. LUNGS: Decreased breath sounds and some wheezing in the lower lobes. ABDOMEN: Soft, nontender. NEUROLOGIC: Alert, awake, and oriented x3. MUSCULOSKELETAL: Moves all extremities. SKIN: Dry. CONDITION AT DISCHARGE: Improved and stable. DISCHARGE MEDICATIONS: Please see medication reconciliation list. FOLLOWUP: Follow up with PCP in 1 to 2 weeks. TIME SPENT: Total time of discharge is 33 minutes. Dictated by KENROY Alejandro Soniaching Pino Lowry MD MY/MODL /[id number] cc: Jared Espitia
== END 2019-09-11 15:05 | disposition home or self-care (01) | DRG 194 ==
LOC: ER 12:03 → ERHOLD 14:57 → MED/SURG2 09-06 13:05
PROVIDERS: ADMIT Internal Medicine; ATTEND Internal Medicine
DX: J11.08 Influenza due to unidentified influenza virus with specified pneumonia (principal); J44.0 Chronic obstructive pulmonary disease with (acute) lower respiratory infection; J44.1 Chronic obstructive pulmonary disease with (acute) exacerbation; J15.9 Unspecified bacterial pneumonia; R09.02 Hypoxemia; I10 Essential (primary) hypertension; E78.00 Pure hypercholesterolemia, unspecified; E11.9 Type 2 diabetes mellitus without complications; Z83.3 Family history of diabetes mellitus; Z86.73 Personal history of transient ischemic attack (TIA), and cerebral infarction without residual deficits; Z88.5 Allergy status to narcotic agent; R53.81 Other malaise; J44.9 Chronic obstructive pulmonary disease, unspecified; Z82.49 Family history of ischemic heart disease and other diseases of the circulatory system; R06.03 Acute respiratory distress; Z79.4 Long term (current) use of insulin
CPT/HCPCS: 36415; 36600; 71045; 71260; 80048; 80053; 80202; 81001; 82805; 82948; 83605; 83880; 85025; 87040; 87070; 87086; 87205; 94640; 94664; 96360; 96372; 97139; 99284; J0360; J0456; J0696; J1644; J1815; J1817; J1885; J1956; J2920; J3370; J7050; J7512; Q9967